=== PATIENT | female | born 2000 | race Caucasian/White ===

== ENCOUNTER 2024-01-27 16:11 | Emergency (ER) | payer SELFPAY ==
[2024-01-27 16:14] VITALS: BP 128/82
--- NOTE | 2024-01-27 16:25 | ED.GENMED ---
ED Provider Triage
<Ruth Petty PA-C - Last Filed: 01/27/24 18:42>
-
Patient seen by provider in Triage?: Seen in Triage
Attestation: A medical screening examination has been initiated by a qualified medical provider. Based on the assessment performed at this time, it has been determined that an emergent medical condition may exist and the patient has been informed
that further medical evaluation and possible additional diagnostic testing may be needed.
HPI: 23yo female currently 7 weeks . Here with vaginal bleeding that started today. Started with spotting and then noticed blood after wiping. Also having cramping which feels like menstrual cramping.
GENERAL: Alert , in no apparent distress
EYE: No visual abnormalities.
NECK: Trachea midline
ENT: No visible abnormalities.
LUNGS: No acute respiratory distress
NEUROLOGICAL: Alert and oriented
SKIN: Skin intact. No visible changes.
MUSCULOSKELETAL: Moving extremities normally
PSYCH: Normal and appropriate interaction.
This is a medical evaluation conducted in person to initiate diagnostic evaluation and provide initial therapeutics. Please see further documentation by the treating clinician.
CBC, CMP, quantitative hCG, blood typing, and pelvic ultrasound ordered.
History of Present Illness
<Ruth Petty PA-C - Last Filed: 01/27/24 18:42>
General
Chief Complaint: Problems
Time Seen by Provider: 01/27/24 18:02
<Raúl Armstrong Jr., PA-C - Last Filed: 01/30/24 14:09>
General
Source: patient
Exam Limitations: none
Nursing documentation reviewed up to this point in time: agreed with
History of Present Illness
History of Present Illness:
The patient is a 23-year-old female currently 7 weeks by dates presenting to the emergency department today with concerns of a bloody discharge that started earlier today. Denies any chest pain shortness of breath or abdominal pain. Denies any
urinary symptoms.
Past History
<Ruth Petty PA-C - Last Filed: 01/27/24 18:42>
Past History
ED Past Medical History: None
ED Past Surgical History: None
Review of Systems
<Raúl Armstrong Jr., PA-C - Last Filed: 01/30/24 14:09>
Review of Systems
Allergies reviewed?: Yes
All Other Systems: ROS reviewed and negative except as documented in HPI and ROS
Phy Exam
<Raúl Armstrong Jr., PA-C - Last Filed: 01/30/24 14:09>
Physical Exam
Physical Exam:
GENERAL: Alert , in no apparent distress
EYE: pupils equal and reactive
NECK: Supple, no significant adenopathy.
ENT: o/p clr, mmm.
CARDIAC: Regular rate and rhythm .
LUNGS: Clear breath sounds bilaterally, no acute respiratory distress, no wheezes/rales/rhonchi
ABDOMEN: Soft, without focal tenderness, no r/g, no cvat
NEUROLOGICAL: Alert and oriented, no focal neuro deficits
SKIN: Warm and dry, skin intact.
MUSCULOSKELETAL: No edema, well perfused.
PSYCH: Normal and appropriate interaction.
Course
<Ruth Petty PA-C - Last Filed: 01/27/24 18:42>
Orders/Labs/Results
Orders:
Orders
01/27/24 16:27
1st Trimester US [US 1st Trimester] Urgent
Comment:
Reason For Exam: Vaginal bleeding, cramping, 7 weeks
01/27/24 16:33
Type+Screen Urgent
Beta HCG Quantitative Urgent
Is this a screen?: No
Complete Blood Count/With Diff Urgent
Comprehensive Metabolic Panel Urgent
Abnormal Lab Results
01/27/24
16:33
RBC 4.06 L 10^6/uL
(4.20-5.40)
Hct 36.5 L %
(37.0-47.0)
MPV 10.5 H fL
(7.4-10.4)
Absolute Neuts (auto) 6.6 H 10^3/uL
(1.4-6.5)
Neutrophils % 75.3 H %
(42.2-75.2)
Lymphocytes % 17.3 L %
(20.5-51.1)
Glucose 105 H mg/dl
(70-99)
Total Bilirubin 0.1 L mg/dl
(0.2-1.3)
01/27/24 16:33
01/27/24 16:33
Vital Signs
Initial and Last Documented VS:
Initial Vital Signs
Temp Pulse Resp BP Pulse Ox
98.3 F 94 16 128/82 100
01/27/24 16:14 01/27/24 16:14 01/27/24 16:14 01/27/24 16:14 01/27/24 16:14
Last Documented Vital Signs
Temp Pulse Resp BP Pulse Ox
98.3 F 90 16 122/74 99
01/27/24 16:14 01/27/24 20:00 01/27/24 20:00 01/27/24 20:00 01/27/24 20:00
<Raúl Armstrong Jr., PA-C - Last Filed: 01/30/24 14:09>
Orders/Labs/Results
Orders:
Orders
01/27/24 16:27
1st Trimester US [US 1st Trimester] Urgent
Comment:
Reason For Exam: Vaginal bleeding, cramping, 7 weeks
01/27/24 16:33
Type+Screen Urgent
Beta HCG Quantitative Urgent
Is this a screen?: No
Complete Blood Count/With Diff Urgent
Comprehensive Metabolic Panel Urgent
Abnormal Lab Results
01/27/24
16:33
RBC 4.06 L 10^6/uL
(4.20-5.40)
Hct 36.5 L %
(37.0-47.0)
MPV 10.5 H fL
(7.4-10.4)
Absolute Neuts (auto) 6.6 H 10^3/uL
(1.4-6.5)
Neutrophils % 75.3 H %
(42.2-75.2)
Lymphocytes % 17.3 L %
(20.5-51.1)
Glucose 105 H mg/dl
(70-99)
Total Bilirubin 0.1 L mg/dl
(0.2-1.3)
01/27/24 16:33
01/27/24 16:33
Vital Signs
Initial and Last Documented VS:
Initial Vital Signs
Temp Pulse Resp BP Pulse Ox
98.3 F 94 16 128/82 100
01/27/24 16:14 01/27/24 16:14 01/27/24 16:14 01/27/24 16:14 01/27/24 16:14
Last Documented Vital Signs
Temp Pulse Resp BP Pulse Ox
98.3 F 90 16 122/74 99
01/27/24 16:14 01/27/24 20:00 01/27/24 20:00 01/27/24 20:00 01/27/24 20:00
Information
Weeks gestation: N/A
Location: N/A
<Raúl Armstrong Jr., PA-C - Last Filed: 01/30/24 14:09>
MDM/Problems Addressed
MDM/Problems Addressed:
23-year-old female currently 7 weeks by dates presenting to the emergency department today with concerns of vaginal bleeding during early . Labs showing hCG quant level of 200 she is O+ otherwise labs unremarkable.
Ultrasound showing no visible . Case was discussed with OB they recommend repeated labs in 2 days for further clarification otherwise threatened miscarriage at this point patient in no distress and stable. Stable for outpatient follow-up
for this. Return precautions given.
<Raúl Armstrong Jr., PA-C - Last Filed: 01/30/24 14:09>
*Critical Care Note
Total Time (30-74mins, 75-104mins- exclusive of procedures): Not Applicable
ED Attending Note
<Ruth Petty PA-C - Last Filed: 01/27/24 18:42>
-
Portions of this chart may have been created with voice recognition software.� Occasional wrong word or��sound alike� substitutions may have occurred due to the inherent limitations of voice recognition software.
Discharge Plan
Departure
Patient Disposition: Home (Routine Discharge)
Date of Disposition: 01/27/24
Time of Disposition: 20:09
Patient with high blood pressure during this ER visit?: No
Condition: Good
Covid-19: Not Applicable
Discharge Problem:
Threatened miscarriage
Instructions: Threatened Miscarriage (DC)
Prescriptions:
No Action
ibuprofen 600 MG tablet
600 mg PO Q6HPRN PRN (Reason: moderate pain/cramps) 0RF
amoxicillin-pot clavulanate 875-125 mg tablet
1 tab PO BID Qty: 14 0RF
prednisone 20 mg tablet
40 mg PO DAILY Qty: 10 0RF
Referrals:
Inderjit Amaro MD [Family Provider] -
Activity Restrictions/Additional Instructions:
You came to the emergency department today with concerns of spotting in setting of early . Here you had a quantitative hCG of 200 and you had an ultrasound that did not show any IUP. 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
like you to have a repeated blood test in 2 days. Considering there are no labs over on Sundays please come to the ER to have a repeated lab test.
Interventions
Interventions:
*Risk Screen - Suicide Last Done: 01/27/24 16:14
*General Assessment Last Done: 01/27/24 16:14
*Neglect/Abuse Screening Last Done: 01/27/24 16:14
ED- Fall Risk Assessment Last Done: 01/27/24 18:09
*ED COVID-19 Vaccine History Last Done: 01/27/24 16:14
*Nursing Disposition Last Done: 01/27/24 20:12
ED-Female Genitourinary Assessment Last Done: 01/27/24 18:09
Discharge Date and Time
Discharge Date/Time: 01/27/24 20:12
Print Language: DIVEHI
[2024-01-27 16:41] LABS: % Basophils 0.5 % (0-2); % Eosinophils 0.3 % (0-6); % Immature Granulocytes 0.5 % (0-0.5); % Lymphocytes 17.3 % (20.5-51.1); % Monocytes 6.1 % (1.7-9.3); % Neutrophils 75.3 % (42.2-75.2); Absolute Lymphocytes 1.5 10^3/uL (1.2-3.4); Absolute Monocytes 0.5 10^3/uL (0.1-0.6); Absolute Neutrophils 6.6 10^3/uL (1.4-6.5); Hematocrit 36.5 % (37.0-47.0); Hemoglobin 12.5 g/dL (12.0-16.0); Mean Corp Hgb Conc. 34.2 g/dL (33.0-37.0); Mean Corpuscular Hgb 30.8 pg (27.0-31.0); Mean Corpuscular Volume 89.9 fL (81.0-99.0); Mean Platelet Volume 10.5 fL (7.4-10.4); Nucleated Red Blood Cells % 0 %; Platelet Count 185 10^3/uL (130-400); Red Blood Cell Count 4.06 10^6/uL (4.20-5.40); Red Cell Dist. Width 12.7 % (11.5-14.5); White Blood Cell Count 8.8 10^3/uL (4.8-10.8)
[2024-01-27 16:59] LABS: ALT (SGPT) 23 U/L (0-35); AST (SGOT) 21 U/L (14-36); Albumin 4.9 g/dl (3.5-5.0); Alkaline Phosphatase 52 U/L (38-126); Blood Urea Nitrogen 10 mg/dl (7-17); Calcium 9.6 mg/dl (8.4-10.2); Carbon Dioxide 25 mmol/L (22-30); Chloride 103 mmol/L (98-107); Glucose 105 mg/dl (70-99); Potassium 3.8 mmol/L (3.5-5.1); Sodium 139 mmol/L (135-145); Total Bilirubin 0.1 mg/dl (0.2-1.3); Total Protein 7.4 g/dl (6.3-8.2); eGFR > 60.00
[2024-01-27 17:14] LABS: Beta HCG Quantitative 200.66 mIU/ml
[2024-01-27 18:00] VITALS: BP 114/78
[2024-01-27 20:00] VITALS: BP 122/74
== END 2024-01-27 20:12 | disposition home or self-care (01) ==
LOC: EMR 16:11
PROVIDERS: Physician Assistant; EMERGENCY PHYSICIAN Student in an Organized Health Care Education/Training Program; FAMILY PHYSICIAN Pediatrics
DX: O20.0 Threatened abortion (principal); Z3A.01 Less than 8 weeks gestation of pregnancy
CPT/HCPCS: 99284; 76801; 80053; 84702; 85025; 86850; 86900; 86901

== ENCOUNTER 2024-01-29 16:40 | Emergency (ER) | payer SELFPAY ==
[2024-01-29 16:42] VITALS: BP 131/64
--- NOTE | 2024-01-29 16:54 | ED.GENMED ---
History of Present Illness
General
Chief Complaint: Problems
Source: patient
Exam Limitations: none
Time Seen by Provider: 01/29/24 16:48
Nursing documentation reviewed up to this point in time: agreed with
History of Present Illness
History of Present Illness:
23-year-old female with no reported chronic medical issues presents to the emergency room for repeat blood work�had miscarriage Tuesday evening and seen in this emergency room, had elevated hCG quant and was told to have repeat blood work in 48
hours. She says that Tuesday evening into Tuesday she passed obvious tissue and clots and was initially having some heavy bleeding but since then bleeding has improved although she still has some small amount of bleeding/spotting.
She says she has occasional mild cramping but no significant abdominal pain anymore. She does not have any dizziness, nausea, vomiting, fever, any other symptoms. hCG quant was 200 on 01/26; last menstrual period was reportedly 11/11/2023. 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
Past History
Past History
ED Past Medical History: None
ED Past Surgical History: None
Review of Systems
Review of Systems
All Other Systems: ROS reviewed and negative except as documented in HPI and ROS
Constitutional: Denies fever
Cardiac: Denies chest pain or syncope
ABD/GI: Reports abdominal pain (Occasional cramping); Denies nausea or vomiting
: Reports bleeding; Denies flank pain
Musculoskeletal: Denies neck pain or back pain
Neurological: Denies dizzy or headache
Phy Exam
Physical Exam
Physical Exam:
General: Awake, alert, oriented x3; no acute distress
Head: Normocephalic, atraumatic
Eyes: Conjunctiva normal
Throat: Airway intact, handling secretions
Neck: Trachea midline, supple without meningismus
Lungs: Breathing comfortably with no distress
Heart: Regular rate
Abd: Soft, non distended, nontender to deep palpation
Neuro: No gross
Extremities: Warm and well-perfused
Scores
Heart Failure Risk
Heart Failure Risk Score: Not Applicable
Heart Score for Chest Pain Patients
STEMI patient?: Not applicable
Withdrawal Assessment of Alcohol
Withdrawal Assessment Completed?: Not applicable
Course
Orders/Labs/Results
Orders:
Orders
01/29/24 16:50
Test Result ONCE
01/29/24 17:16
Beta HCG Quantitative Urgent
Comment: ADD ON
Complete Blood Count/With Diff Urgent
Comprehensive Metabolic Panel Urgent
HCG, Serum Qualitative Screen Urgent
01/29/24 17:43
Add On- LAB Urgent
Tests Added?: hcg quant
Abnormal Lab Results
01/29/24
17:16
MPV 10.7 H fL
(7.4-10.4)
Monocytes % 10.1 H %
(1.7-9.3)
Alkaline Phosphatase 34 L U/L
(38-126)
01/29/24 17:16
01/29/24 17:16
Vital Signs
Initial and Last Documented VS:
Initial Vital Signs
Temp Pulse Resp BP Pulse Ox
36.8 C 64 18 131/64 100
01/29/24 16:42 01/29/24 16:42 01/29/24 16:42 01/29/24 16:42 01/29/24 16:42
Last Documented Vital Signs
Temp Pulse Resp BP Pulse Ox
36.8 C 54 18 98/63 100
01/29/24 16:42 01/29/24 18:26 01/29/24 16:42 01/29/24 18:26 01/29/24 16:42
Information
Weeks gestation: N/A
Location: N/A
MDM/Problems Addressed
Differential Diagnosis Includes:
Ectopic , missed AB, retained products
MDM/Problems Addressed:
23-year-old female presents for evaluation to have repeat blood work�had bleeding Tuesday, seen in the ER had elevated hCG was told to have repeat blood work in 48 hours. She says she passed visible tissue Tuesday night into Tuesday morning.
She did have an ultrasound on 01/26 that showed no IUP or retained products. Will send repeat blood work including a CBC, hCG quant, type and screen. Reassess after the above.
Repeat labs reviewed: CBC shows stable hemoglobin, CMP unremarkable. Repeat hCG quant downtrending to 53 consistent with diagnosis of complete in the setting of recently negative ultrasound. Stable for discharge referred to [facility] for
follow-up. Patient comfortable with this plan. All questions answered.
*Radiology
Radiology exam reviewed: radiology read reviewed (Reviewed ultrasound from 01/26)
*Pulse Oximetry
Patient hypoxic: no
*Critical Care Note
Total Time (30-74mins, 75-104mins- exclusive of procedures): Not Applicable
Data Reviewed
Review of Other/Old Records Reveals: Labs and Records
Source: patient and records
ED Attending Note
-
Portions of this chart may have been created with voice recognition software.� Occasional wrong word or��sound alike� substitutions may have occurred due to the inherent limitations of voice recognition software.
Discharge Plan
Departure
Patient Disposition: Home (Routine Discharge)
Date of Disposition: 01/29/24
Time of Disposition: 18:55
Patient with high blood pressure during this ER visit?: No
Discharge Problem:
Miscarriage
Instructions: Miscarriage (DC)
Prescriptions:
No Action
ibuprofen 600 MG tablet
600 mg PO Q6HPRN PRN (Reason: moderate pain/cramps) 0RF
amoxicillin-pot clavulanate 875-125 mg tablet
1 tab PO BID Qty: 14 0RF
prednisone 20 mg tablet
40 mg PO DAILY Qty: 10 0RF
Referrals:
Nick Ch MD [Active] - Call in 1-3 days for appt
Activity Restrictions/Additional Instructions:
Thank you for visiting the Emergency Department at [facility].
1. Please schedule a follow up appointment as directed. Call first thing tomorrow morning to make an appointment.
2. If indicated, please take your medications as instructed and indicated on discharge paperwork.
3. If any of your symptoms do not improve, or persist, or become more severe within 6-12 hours, please return to the emergency department for further care.
4. Please return to the emergency department if you develop a headache, neck pain/stiffness, fever greater than 100.4F, chest pain, shortness of breath, persistent nausea, vomiting, slurred speech, difficulty walking, numbness/tingling, weakness,
signs of infection or any other symptoms that are worrisome to you.
Please call [phone] if you have any questions.
Interventions
Interventions:
*Risk Screen - Suicide Last Done: 01/29/24 16:42
*General Assessment Last Done: 01/29/24 16:42
*Neglect/Abuse Screening Last Done: 01/29/24 16:42
ED- Fall Risk Assessment Last Done: 01/29/24 17:21
*ED COVID-19 Vaccine History Last Done: 01/29/24 17:20
*Nursing Disposition Last Done: 01/29/24 19:05
ED-Female Genitourinary Assessment Last Done: 01/29/24 17:20
Discharge Date and Time
Discharge Date/Time: 01/29/24 19:06
Print Language: TAJIK
[2024-01-29 17:28] LABS: % Basophils 0.5 % (0-2); % Eosinophils 0.9 % (0-6); % Immature Granulocytes 0.5 % (0-0.5); % Lymphocytes 37.8 % (20.5-51.1); % Monocytes 10.1 % (1.7-9.3); % Neutrophils 50.2 % (42.2-75.2); Absolute Eosinophils 0.1 10^3/uL (0-0.7); Absolute Lymphocytes 2.1 10^3/uL (1.2-3.4); Absolute Monocytes 0.6 10^3/uL (0.1-0.6); Absolute Neutrophils 2.8 10^3/uL (1.4-6.5); Hematocrit 37.9 % (37.0-47.0); Hemoglobin 12.8 g/dL (12.0-16.0); Mean Corp Hgb Conc. 33.8 g/dL (33.0-37.0); Mean Corpuscular Hgb 30.3 pg (27.0-31.0); Mean Corpuscular Volume 89.6 fL (81.0-99.0); Mean Platelet Volume 10.7 fL (7.4-10.4); Nucleated Red Blood Cells % 0 %; Platelet Count 187 10^3/uL (130-400); Red Blood Cell Count 4.23 10^6/uL (4.20-5.40); Red Cell Dist. Width 12.6 % (11.5-14.5); White Blood Cell Count 5.5 10^3/uL (4.8-10.8)
[2024-01-29 17:39] LABS: HCG, Serum Qualitative Screen Positive
[2024-01-29 17:41] LABS: ALT (SGPT) 21 U/L (0-35); AST (SGOT) 21 U/L (14-36); Albumin 4.4 g/dl (3.5-5.0); Alkaline Phosphatase 34 U/L (38-126); Blood Urea Nitrogen 12 mg/dl (7-17); Calcium 9.7 mg/dl (8.4-10.2); Carbon Dioxide 26 mmol/L (22-30); Chloride 102 mmol/L (98-107); Glucose 93 mg/dl (70-99); Sodium 136 mmol/L (135-145); Total Bilirubin 0.4 mg/dl (0.2-1.3); Total Protein 6.8 g/dl (6.3-8.2); eGFR > 60.00
[2024-01-29 18:26] VITALS: BP 98/63
[2024-01-29 18:46] LABS: Beta HCG Quantitative 53.99 mIU/ml
== END 2024-01-29 19:06 | disposition home or self-care (01) ==
LOC: EMR 16:40
PROVIDERS: EMERGENCY PHYSICIAN Emergency Medicine; FAMILY PHYSICIAN Pediatrics
DX: O03.9 Complete or unspecified spontaneous abortion without complication (principal)
CPT/HCPCS: 99283; 80053; 84702; 84703; 85025